=== PATIENT | female | born 1955 | race Caucasian/White ===

== ENCOUNTER 2023-09-04 08:56 | Emergency (ER) | payer MEDICARE, BC ==
[~2023-09-04] VITALS: Ht 154.9 cm; Wt 76.8 kg
[2023-09-04 12:31] VITALS: BP 139/61
[2023-09-04 12:32] VITALS: BP 135/66
== END 2023-09-04 12:30 | disposition home or self-care (01) ==
LOC: ED 08:56
DX: S81.811D Laceration without foreign body, right lower leg, subsequent encounter (principal); I10 Essential (primary) hypertension; X58.XXXD Exposure to other specified factors, subsequent encounter